=== PATIENT | male | born 1985 | race African-American/Black ===

== ENCOUNTER 2017-06-15 12:45 | Inpatient (IN) | payer OTHER ==
[2017-06-15 14:15] VITALS: BMI 49.4
--- NOTE | 2017-06-15 15:46 | HP ---
CIWA Score - CIWA Score Nausea/Vomitin Muscle Tremors: 3 Anxiety: 3 Agitation: 3 Paroxysmal Sweats: 2 Orientation: 0-Oriented Tacttile Disturbances: 2-Mild Itch/Numbness/Burn Auditory Disturbances: 1-Very Mild Visual Disturbances: 0-None Headache: 2-Mild CIWA-Ar Total Score: 19 Admission ROS BHS - HPI Chief Complaint: i need help to stop drinking alcocol,pcp Allergies/Adverse Reactions: Allergies Allergy/AdvReac Type Severity Reaction Status Date / Time No Known Allergies Allergy Verified 06/15/17 15:33 History of Present Illness: this 31 yeas old male with alcohol and pcp dependence ,sseking detox,last treatment in 2008 [facility] syncope alcohol related bipolar disorder,anxiety and depression longest period of sobriety 5 years Exam Limitations: No Limitations - Ebola screening Have you traveled outside of the country in the last 21 days: No Have you had contact with anyone from an Ebola affected area: No Have you been sick,other than usual withdrawal symptoms: No Do you have a fever: No - Review of Systems Constitutional: Night Sweats, Changes in sleep EENT: reports: Nose Congestion Respiratory: reports: No Symptoms reported Cardiac: reports: No Symptoms Reported GI: reports: Nausea, Vomiting, Abdominal cramping : reports: No Symptoms Reported Musculoskeletal: reports: Back Pain, Muscle Pain Integumentary: reports: Dryness Neuro: reports: Headache, Tremors Endocrine: reports: No Symptoms Reported Hematology: reports: No Symptoms Reported Psychiatric: reports: Anxious, Depressed, other (bipolar disorder) Patient History - Patient Medical History Hx Anemia: No Hx Asthma: No Hx Chronic Obstructive Pulmonary Disease (COPD): No Hx Cancer: No Hx Cardiac Disorders: No Hx Congestive Heart Failure: No Hx Hypertension: No Hx Hypercholesterolemia: No Hx Pacemaker: No HX Cerebrovascular Accident: No Hx Seizures: No Hx Dementia: No Hx Diabetes: No Hx Gastrointestinal Disorders: No Hx Liver Disease: No Hx Genitourinary Disorders: No Hx Renal Disease (ESRD): No Hx Thyroid Disease: No Hx Human Immunodeficiency Virus (HIV): No (lasrt 2014 negative) Hx Hepatitis C: No Hx Depression: Yes (anxiety) Hx Suicide Attempt: No Hx Bipolar Disorder: Yes Hx Schizophrenia: No Other Medical History: no suicidal,no homicidal - Patient Surgical History Past Surgical History: No - PPD History Previous Implant?: Yes Documented Results: Negative w/o proof PPD to be Administered?: Yes - Smoking Cessation Smoking history: Current every day smoker Have you smoked in the past 12 months: Yes Aproximately how many cigarettes per day: 3 Cigars Per Day: 0 Hx Chewing Tobacco Use: No Initiated information on smoking cessation: Yes 'Breaking Loose' booklet given: 06/15/17 - Substance & Tx. History Hx Alcohol Use: Yes Hx Substance Use: No Substance Use Type: Alcohol Hx Substance Use Treatment: Yes (last treatment 2008 [facility]) - Substances Abused Alcohol Route: Oral Frequency: Daily Amount used: 1-2 pints vodka , 5 24 oz beer Age of first use: 16 Date of Last Use: 06/14/17 PCP Route: Smoking Frequency: 1-3 times last 30 days Amount used: $10 Age of first use: 20 Date of Last Use: 06/09/17 Family Disease History - Family Disease History Family History: Denies Admission Physical Exam S - Vital Signs Vital Signs: Vital Signs - 24 hr 06/15/17 14:13 Temperature 98.0 F Pulse Rate 85 Respiratory 16 Rate Blood Pressure 140/79 - Physical General Appearance: Yes: Moderate Distress, Obese HEENTM: Yes: Normal ENT Inspection, LISETTE, Pharynx Normal Respiratory: Yes: Lungs Clear, Normal Breath Sounds, No Respiratory Distress Neck: Yes: Within Normal Limits, Supple, Trachea in good position Breast: Yes: Within Normal Limits Cardiology: Yes: Within Normal Limits, Regular Rhythm, Regular Rate, S1, S2 Abdominal: Yes: Within Normal Limits, Non Tender, Flat, Soft Genitourinary: Yes: Within Normal Limits Back: Yes: Muscle Spasm Musculoskeletal: Yes: Within Normal Limits, full range of Motion, Back pain Extremities: Yes: Within Normal Limits, Normal Inspection, Normal Range of Motion, Tremors Neurological: Yes: fiscal analyst II-XII NML intact, Fully Oriented, Alert, Motor Strength 5/5 Integumentary: Yes: Dry Lymphatic: Yes: Within Normal Limits - Diagnostic (1) Alcohol dependence with uncomplicated withdrawal Current Visit: Yes Status: Acute (2) Syncope Current Visit: Yes Status: Acute (3) Obesity Current Visit: Yes Status: Chronic (4) Obesities, morbid Current Visit: Yes Status: Acute (5) Bipolar disorder Current Visit: Yes Status: Chronic Comment: Historical diagnosis. (6) History of umbilical hernia repair Current Visit: Yes Status: Chronic (7) Nicotine dependence Current Visit: Yes Status: Acute Cleared for Admission [facility] - Detox or Rehab [facility] Level of Care: Medically Managed Detox Regimen/Protocol: Librium [facility] Breath Alcohol Content Breath Alcohol Content: 0 Urine Drug Screen - Results Drug Screen Negative: Yes
[2017-06-15] MEDS ORDERED: MAGNESIUM CITRATE 300 ML BOTTLE PO PRN (16:10)
[2017-06-15] MEDS ORDERED: MENTHOL/PHENOL 1 EACH UD MM PRN (16:10)
[2017-06-15] MEDS ORDERED: MAGNESIUM HYDROX 2400MG/30ML ORAL SUSPENSION 30 ML CUP PO PRN (16:10)
[2017-06-15] MEDS ORDERED: P-EPHED 60MG/TRIPROLIDI 2.5MG TABLET PO PRN (16:10)
[2017-06-15] MEDS ORDERED: MAG HYDROX/AL HYDROX/SIMETH 30 ML UNIT-DOSE CUP PO PRN (16:10)
[2017-06-15] MEDS ORDERED: ACETAMINOPHEN 325 MG TABLET (FP) PO PRN (16:10)
[2017-06-15] MEDS ORDERED: hydrOXYzine PAMOATE 50 MG CAPSULE (FP) PO PRN (16:10)
[2017-06-15] MEDS ORDERED: guaiFENesin/D-METHORPHAN HB 10 ML UNIT-DOSE CUPS PO PRN (16:10)
[2017-06-15] MEDS ORDERED: LOPERAMIDE HCL 2 MG CAPSULE PO PRN (16:10)
[2017-06-15] MEDS ORDERED: IBUPROFEN 400 MG TABLET (FP) PO PRN (16:10)
[2017-06-15] MEDS ORDERED: chlordiazePOXIDE HCL 25 MG CAPSULE PO PRN (17:21)
--- NOTE | 2017-06-15 18:21 | CONSULT ---
[facility] Psychiatric Consult - Data Date of interview: 06/15/17 Admission source: [facility] Identifying data: Readmission to [facility] for this 31 y/o AA male seeking detox treatment on for alcohol and phencyclidine dependence.Patient is single without children,homeless,unemployed and supported on welfare. Substance Abuse History: Discussed with patient.Mr Good confirms this report. Smoking Cessation. Smoking history: Current every day smoker. Have you smoked in the past 12 months: Yes. Aproximately how many cigarettes per day: 3. Cigars Per Day: 0. Hx Chewing Tobacco Use: No. Initiated information on smoking cessation: Yes. 'Breaking Loose' booklet given: 06/15/17. - Substance & Tx. History. Hx Alcohol Use: Yes. Hx Substance Use: No. Substance Use Type : Alcohol. Hx Substance Use Treatment: Yes (last treatment 2008 [facility]) Medical History: Patient endorses good general health.Noted history of abdominal herniorraphy (three years ago). Psychiatric History: Patient reports a history of multiple psychiatric hospitalizations.He is known to [facility] ([facility]),[facility] and [facility].Diagnosed with Bipolar Disorder.Mr Good denies affiliation with any OPD care organization.Totally lost to follow up.Recent retention at [facility].Vague about his maintenance medications." I am on haldol,risperdal,depakote,abilify,cogentin and some other stuff." Adherence remains questionable.Patient denies history of suicide attempts. Physical/Sexual Abuse/Trauma History: Patient denies. Additional Comment: Drug Screen is negative. Mental Status Exam - Mental Status Exam Alert and Oriented to: Time, Place, Person Cognitive Function: Good Patient Appearance: Well Groomed (obese) Mood: Nervous, Withdrawn Affect: Appropriate, Normal Range Patient Behavior: Fatigued, Appropriate, Cooperative Speech Pattern: Clear Voice Loudness: Normal Thought Process: Goal Oriented Thought Disorder: Not Present Hallucinations: Denies Suicidal Ideation: Denies Homicidal Ideation: Denies Insight/Judgement: Poor Sleep: Poorly, Difficulty falling asleep Appetite: Good Muscle strength/Tone: Normal Gait/Station: Normal Psychiatric Findings - Problem List ([place] 1, 2,3) (1) Alcohol dependence with uncomplicated withdrawal Current Visit: Yes Status: Acute (2) Nicotine dependence Current Visit: Yes Status: Acute (3) Substance induced mood disorder Current Visit: Yes Status: Acute (4) Bipolar disorder Current Visit: Yes Status: Chronic Comment: Historical diagnosis. (5) Obesity Current Visit: Yes Status: Chronic (6) History of umbilical hernia repair Current Visit: Yes Status: Chronic (7) Insomnia Current Visit: Yes Status: Acute - Initial Treatment Plan Initial Treatment Plan: Psychoeducation.Detoxification.Medications : depakote 250 mg po bid + risperdal 1 mg po bid + cogentin 0.5 mg po daily.Side effects/ benefits of each medication are discussed with the patient.He consents (verbally ) to adhere to the proposed regimen.Observation.
[2017-06-15 19:05] LABS: URINE APPEARANCE CLEAR; URINE BILIRUBIN NEGATIVE (NEGATIVE); URINE BLOOD NEGATIVE (NEGATIVE); URINE COLOR LTYELLOW; URINE GLUCOSE (UA) NEGATIVE (NEGATIVE); URINE KETONE NEGATIVE (NEGATIVE); URINE LEUK ESTERASE TRACE (NEGATIVE); URINE NITRITE NEGATIVE (NEGATIVE); URINE PROTEIN NEGATIVE (NEGATIVE); URINE UROBILINOGEN NEGATIVE mg/dL (0.2-1.0)
[2017-06-15 19:20] LABS: URINE HYALINE CAST 1 /lpf; URINE MUCUS RARE; URINE RBC 1 /hpf (0-3); URINE WBC 9 /hpf (3-5)
[2017-06-15] MEDS: chlordiazePOXIDE HCL 25 MG CAPSULE PO SCH (22:15)
[2017-06-15] MEDS: DIVALPROEX SODIUM 250 MG TABLET E.C. (FP) PO SCH (22:15)
[2017-06-15] MEDS: diphenhydrAMINE HCL 50 MG CAPSULE PO PRN (22:15)
[2017-06-15] MEDS: THIAMINE HCL 100 MG TABLET (FP) PO SCH (22:15)
[2017-06-15] MEDS: risperiDONE 1 MG TABLET (FP) PO SCH (22:15)
[2017-06-16] MEDS: chlordiazePOXIDE HCL 25 MG CAPSULE PO SCH ×4 (05:49→22:30)
[2017-06-16] MEDS: risperiDONE 1 MG TABLET (FP) PO SCH ×2 (10:22→22:31)
[2017-06-16] MEDS: PRENATAL VITAMINS W/ FOLIC ACID TABLET (FP) PO SCH (10:22)
[2017-06-16] MEDS: BENZTROPINE MESYLATE 1 MG TABLET (FP) PO SCH (10:22)
[2017-06-16] MEDS: DIVALPROEX SODIUM 250 MG TABLET E.C. (FP) PO SCH ×2 (10:22→22:31)
[2017-06-16 10:30] LABS: MCH 29.5 pg (25.7-33.7); MCHC 32.8 g/dl (32.0-35.9); MEAN CELL VOLUME 90.2 fl (80-96); MEAN PLT VOLUME 8.7 fl (7.5-11.1); PLATELET COUNT 158 K/MM3 (134-434); RDW 15.5 % (11.9-15.9); WHITE BLOOD COUNT 5.3 K/mm3 (4.0-10.0)
[2017-06-16 10:57] LABS: ALBUMIN 3.3 g/dl (3.4-5.0); ANION GAP 7 (8-16); CALCIUM 8.8 mg/dL (8.5-10.1); CO2 29 mmol/L (21-32)
[2017-06-16 11:03] LABS: ALK PHOS 81 U/L (45-117); BILIRUBIN,TOTAL 0.8 mg/dL (0.2-1.0); CREATININE 0.8 mg/dL (0.7-1.3); GLUCOSE,RANDOM 94 mg/dL (74-106); SGOT/AST 16 U/L (15-37); SGPT/ALT 20 U/L (12-78); TOT PROT 6.3 g/dl (6.4-8.2)
[2017-06-16] MEDS ORDERED: PNEUMOCOCCAL 23 VACCINE 0.5 ML VIAL IM ONE (12:00)
[2017-06-16] MEDS ORDERED: PNEUMOC 13-VAL CONJ-DIP CRM/PF 0.5 ML DISP.SYRIN IM ONE (12:00)
--- NOTE | 2017-06-16 13:10 | PN ---
[facility] CIWA - CIWA Score Nausea/Vomitin-Mild Nausea/No Vomiting Muscle Tremors: 1-None Visible, but [place] Anxiety: 4-Mod. Anxious/Guarded Agitation: 3 Paroxysmal Sweats: 3 Orientation: 0-Oriented Tacttile Disturbances: 3-Moderate Itch/Numb/Burn Auditory Disturbances: 1-Very Mild Visual Disturbances: 2-Mild Sensitivity Headache: 0-None Present CIWA-Ar Total Score: 18 [facility] Progress Note (SOAP) Subjective: Body Aches, Sweating. Objective: PT. A & O X 3, OBSERVED AMBULATING ON UNIT. NO ACUTE DISTRESS. PT. DENIES CHEST PAIN. 06/16/17 13:07 Vital Signs Temperature 97.3 F L 06/16/17 09:07 Pulse Rate 74 06/16/17 09:07 Respiratory Rate 18 06/16/17 09:07 Blood Pressure 117/81 06/16/17 09:07 O2 Sat by Pulse Oximetry (%) Laboratory Tests 06/15/17 06/16/17 06/16/17 18:53 07:45 07:45 WBC 5.3 RBC 4.21 Hgb 12.4 Hct 38.0 MCV 90.2 MCH 29.5 MCHC 32.8 RDW 15.5 Plt Count 158 MPV 8.7 Sodium 140 Potassium 4.0 Chloride 104 Carbon Dioxide 29 Anion Gap 7 L BUN 18 Creatinine 0.8 Creat Clearance w eGFR > 60 Random Glucose 94 Calcium 8.8 Total Bilirubin 0.8 AST 16 ALT 20 Alkaline Phosphatase 81 Total Protein 6.3 L Albumin 3.3 L Urine Color Ltyellow Urine Appearance Clear Urine pH 7.0 Ur Specific [place] 1.020 Urine Protein Negative Urine Glucose (UA) Negative Urine Ketones Negative Urine Blood Negative Urine Nitrite Negative Urine Bilirubin Negative Urine Urobilinogen Negative Ur Leukocyte Esterase Trace Urine RBC 1 Urine WBC 9 Ur Epithelial Cells Rare Hyaline Casts 1 Urine Mucus Rare RPR Titer 06/16/17 07:45 WBC RBC Hgb Hct MCV MCH MCHC RDW Plt Count MPV Sodium Potassium Chloride Carbon Dioxide Anion Gap BUN Creatinine Creat Clearance w eGFR Random Glucose Calcium Total Bilirubin AST ALT Alkaline Phosphatase Total Protein Albumin Urine Color Urine Appearance Urine pH Ur Specific [place] Urine Protein Urine Glucose (UA) Urine Ketones Urine Blood Urine Nitrite Urine Bilirubin Urine Urobilinogen Ur Leukocyte Esterase Urine RBC Urine WBC Ur Epithelial Cells Hyaline Casts Urine Mucus RPR Titer Nonreactive LABS NOTED. Assessment: 06/16/17 13:08 WITHDRAWAL SYMPTOMS. Plan: CONTINUE DETOX. REPEAT UA FOR ADMISSION UA ABNORMALITIES (WBC, LEUKOCYTE ESTERASE).
[2017-06-16 19:30] LABS: URINE APPEARANCE TURBID; URINE BILIRUBIN NEGATIVE (NEGATIVE); URINE BLOOD NEGATIVE (NEGATIVE); URINE COLOR YELLOW; URINE GLUCOSE (UA) NEGATIVE (NEGATIVE); URINE KETONE NEGATIVE (NEGATIVE); URINE NITRITE NEGATIVE (NEGATIVE); URINE UROBILINOGEN NEGATIVE mg/dL (0.2-1.0)
[2017-06-16 19:36] LABS: URINE LEUK ESTERASE 2+ (NEGATIVE); URINE PROTEIN 2+ (NEGATIVE)
[2017-06-16 19:38] LABS: URINE BACTERIA MODERATE /hpf (NONE SEEN); URINE MUCUS RARE; URINE RBC 1 /hpf (0-3); URINE WBC 22 /hpf (3-5)
[2017-06-16] MEDS: THIAMINE HCL 100 MG TABLET (FP) PO SCH (22:30)
[2017-06-16] MEDS: diphenhydrAMINE HCL 50 MG CAPSULE PO PRN (22:31)
[2017-06-17] MEDS: chlordiazePOXIDE HCL 25 MG CAPSULE PO SCH ×3 (06:01→17:52)
[2017-06-17] MEDS: PRENATAL VITAMINS W/ FOLIC ACID TABLET (FP) PO SCH (10:17)
[2017-06-17] MEDS: DIVALPROEX SODIUM 250 MG TABLET E.C. (FP) PO SCH ×2 (10:17→22:12)
[2017-06-17] MEDS: risperiDONE 1 MG TABLET (FP) PO SCH ×2 (10:17→22:12)
[2017-06-17] MEDS: BENZTROPINE MESYLATE 1 MG TABLET (FP) PO SCH (10:17)
--- NOTE | 2017-06-17 14:01 | EKG ---
Test Reason : Blood Pressure : / mmHG Vent. Rate : 066 BPM Atrial Rate : 066 BPM P-R Int : 188 ms QRS Dur : 088 ms QT Int : 390 ms P-R-T Axes : 042 041 -01 degrees QTc Int : 408 ms NORMAL SINUS RHYTHM NORMAL ECG NO PREVIOUS ECGS AVAILABLE BASELINE ARTIFACT Confirmed by FOZIA CRAWFORD, STEVEN ([id number]) on 06/17/2017 2:01:03 PM Referred By: Confirmed By:STEVEN MARCELO MD
--- NOTE | 2017-06-17 14:27 | PN ---
S CIWA - CIWA Score Nausea/Vomitin Muscle Tremors: 4-Moderate,w/Arms Extend Anxiety: 4-Mod. Anxious/Guarded Agitation: 3 Paroxysmal Sweats: 3 Orientation: 0-Oriented Tacttile Disturbances: 1-Very Mild Itch/Numbness Auditory Disturbances: 0-None Visual Disturbances: 0-None Headache: 2-Mild CIWA-Ar Total Score: 20 [facility] Progress Note (SOAP) Subjective: Tremor, sweating, nausea, anxious, chills Objective: 06/17/17 14:24 Last Vital Signs Temp Pulse Resp BP Pulse Ox 97.7 F 83 18 131/84 06/17/17 13:50 06/17/17 13:50 06/17/17 13:50 06/17/17 13:50 Laboratory Tests 06/15/17 06/16/17 06/16/17 18:53 07:45 07:45 WBC 5.3 RBC 4.21 Hgb 12.4 Hct 38.0 MCV 90.2 MCH 29.5 MCHC 32.8 RDW 15.5 Plt Count 158 MPV 8.7 Sodium 140 Potassium 4.0 Chloride 104 Carbon Dioxide 29 Anion Gap 7 L BUN 18 Creatinine 0.8 Creat Clearance w eGFR > 60 Random Glucose 94 Calcium 8.8 Total Bilirubin 0.8 AST 16 ALT 20 Alkaline Phosphatase 81 Total Protein 6.3 L Albumin 3.3 L Urine Color Ltyellow Urine Appearance Clear Urine pH 7.0 Ur Specific [place] 1.020 Urine Protein Negative Urine Glucose (UA) Negative Urine Ketones Negative Urine Blood Negative Urine Nitrite Negative Urine Bilirubin Negative Urine Urobilinogen Negative Ur Leukocyte Esterase Trace Urine RBC 1 Urine WBC 9 Ur Epithelial Cells Rare Urine Bacteria Hyaline Casts 1 Urine Mucus Rare RPR Titer 06/16/17 06/16/17 07:45 19:26 WBC RBC Hgb Hct MCV MCH MCHC RDW Plt Count MPV Sodium Potassium Chloride Carbon Dioxide Anion Gap BUN Creatinine Creat Clearance w eGFR Random Glucose Calcium Total Bilirubin AST ALT Alkaline Phosphatase Total Protein Albumin Urine Color Yellow Urine Appearance Turbid Urine pH 8.0 Ur Specific [place] Urine Protein 2+ H Urine Glucose (UA) Negative Urine Ketones Negative Urine Blood Negative Urine Nitrite Negative Urine Bilirubin Negative Urine Urobilinogen Negative Ur Leukocyte Esterase 2+ H Urine RBC 1 Urine WBC 22 Ur Epithelial Cells Rare Urine Bacteria Moderate Hyaline Casts Urine Mucus Rare RPR Titer Nonreactive Labs noted: abnormal UA Assessment: 06/17/17 14:24 Withdrawal symptoms Noted with abnormal UA Plan: Continue detox Abnormal UA: encouraged to drink lots of water, follow up on urine culture
[2017-06-17] MEDS: NICOTINE 14 MG/24 HOURS TOPICAL PATCH TD SCH (18:52)
[2017-06-17] MEDS: NICOTINE POLACRILEX 2 MG GUM BUC PRN ×2 (18:53→22:58)
[2017-06-17] MEDS: diphenhydrAMINE HCL 50 MG CAPSULE PO PRN (22:12)
[2017-06-17] MEDS: chlordiazePOXIDE 5 MG CAPSULE PO SCH (22:12)
[2017-06-17] MEDS: THIAMINE HCL 100 MG TABLET (FP) PO SCH (22:12)
[2017-06-18] MEDS: chlordiazePOXIDE 5 MG CAPSULE PO SCH ×3 (05:19→17:22)
[2017-06-18] MEDS: NICOTINE 14 MG/24 HOURS TOPICAL PATCH TD SCH (10:21)
[2017-06-18] MEDS: DIVALPROEX SODIUM 250 MG TABLET E.C. (FP) PO SCH ×2 (10:23→22:14)
[2017-06-18] MEDS: BENZTROPINE MESYLATE 1 MG TABLET (FP) PO SCH (10:23)
[2017-06-18] MEDS: PRENATAL VITAMINS W/ FOLIC ACID TABLET (FP) PO SCH (10:23)
[2017-06-18] MEDS: risperiDONE 1 MG TABLET (FP) PO SCH ×2 (10:23→22:14)
[2017-06-18] MEDS: NICOTINE POLACRILEX 2 MG GUM BUC PRN (10:27)
--- NOTE | 2017-06-18 14:01 | PN ---
[facility] Progress Note (SOAP) Subjective: Tremors, Fatigue. Objective: PT. A & O X 3, OBSERVED AMBULATING ON UNIT. NO ACUTE DISTRESS. PT. DENIES CHEST PAIN. 06/18/17 13:58 Vital Signs Temperature 96.5 F L 06/18/17 13:40 Pulse Rate 80 06/18/17 13:40 Respiratory Rate 20 06/18/17 13:40 Blood Pressure 137/97 06/18/17 13:40 O2 Sat by Pulse Oximetry (%) Laboratory Tests 06/15/17 06/16/17 06/16/17 18:53 07:45 07:45 WBC 5.3 RBC 4.21 Hgb 12.4 Hct 38.0 MCV 90.2 MCH 29.5 MCHC 32.8 RDW 15.5 Plt Count 158 MPV 8.7 Sodium 140 Potassium 4.0 Chloride 104 Carbon Dioxide 29 Anion Gap 7 L BUN 18 Creatinine 0.8 Creat Clearance w eGFR > 60 Random Glucose 94 Calcium 8.8 Total Bilirubin 0.8 AST 16 ALT 20 Alkaline Phosphatase 81 Total Protein 6.3 L Albumin 3.3 L Urine Color Ltyellow Urine Appearance Clear Urine pH 7.0 Ur Specific [place] 1.020 Urine Protein Negative Urine Glucose (UA) Negative Urine Ketones Negative Urine Blood Negative Urine Nitrite Negative Urine Bilirubin Negative Urine Urobilinogen Negative Ur Leukocyte Esterase Trace Urine RBC 1 Urine WBC 9 Ur Epithelial Cells Rare Urine Bacteria Hyaline Casts 1 Urine Mucus Rare RPR Titer 06/16/17 06/16/17 07:45 19:26 WBC RBC Hgb Hct MCV MCH MCHC RDW Plt Count MPV Sodium Potassium Chloride Carbon Dioxide Anion Gap BUN Creatinine Creat Clearance w eGFR Random Glucose Calcium Total Bilirubin AST ALT Alkaline Phosphatase Total Protein Albumin Urine Color Yellow Urine Appearance Turbid Urine pH 8.0 Ur Specific [place] <= 1.005 Urine Protein 2+ H Urine Glucose (UA) Negative Urine Ketones Negative Urine Blood Negative Urine Nitrite Negative Urine Bilirubin Negative Urine Urobilinogen Negative Ur Leukocyte Esterase 2+ H Urine RBC 1 Urine WBC 22 Ur Epithelial Cells Rare Urine Bacteria Moderate Hyaline Casts Urine Mucus Rare RPR Titer Nonreactive LABS NOTED. Assessment: 06/18/17 14:00 WITHDRAWAL SYMPTOMS. Plan: CONTINUE DETOX. BASED ON RESULTS OF REPEAT UA DONE ON 06/16/2017, START BACTRIM DS PO BID X 7 DAYS. INCREASE PO FLUID INTAKE.
[2017-06-18] MEDS: SULFAMETHOXAZOLE/TRIMETHOPRIM 800MG/160MG D.S. TABLET PO SCH ×2 (14:50→22:14)
[2017-06-18] MEDS ORDERED: SULFAMETHOXAZOLE/TRIMETHOPRIM 800MG/160MG D.S. TABLET PO SCH (22:00)
[2017-06-18 22:11] VITALS: PULSE 84
[2017-06-18] MEDS: chlordiazePOXIDE HCL 10 MG CAPSULE PO SCH (22:13)
[2017-06-18] MEDS: THIAMINE HCL 100 MG TABLET (FP) PO SCH (22:13)
[2017-06-18] MEDS: diphenhydrAMINE HCL 50 MG CAPSULE PO PRN (22:14)
[2017-06-19 06:10] VITALS: BP 141/90; TEMP 97.4
[2017-06-19] MEDS: chlordiazePOXIDE HCL 10 MG CAPSULE PO SCH (06:21)
--- NOTE | 2017-06-19 10:09 | DS ---
[facility] Detox Discharge Summary Admission Date: 06/15/17 Discharge Date: 06/19/17 - History Present History: Alcohol Dependence Additional Comments: PT D/C'D EARLIER TODAY TO F/U WITH EVALUATION ASSESSMENT PER D/C ORDER. DETOX COMPLETED. TO F/U AT [facility]. Pertinent Past History: OBESITY UMBILICAL HERNIA REPAIR - Physical Exam Results Vital Signs: Vital Signs Temperature 97.4 F L 06/19/17 06:10 Pulse Rate 84 06/19/17 06:10 Respiratory Rate 18 06/19/17 06:10 Blood Pressure 141/90 06/19/17 06:10 O2 Sat by Pulse Oximetry (%) Pertinent Admission Physical Exam Findings: WITHDRAWAL SX - Treatment Hospital Course: Detox Protocol Followed, Detoxed Safely, Responded well, Discharged Condition Good - Medication Discharge Medications: Ambulatory Orders Benztropine Mesylate [Cogentin -] 1 mg PO BID 06/15/17 Divalproex Sodium [Depakote] 250 mg PO BID 06/15/17 Benztropine Mesylate [Cogentin -] 0.5 mg PO HS #30 tablet 06/18/17 Divalproex [Depakote -] 500 mg PO HS #30 tablet.ec 06/18/17 Risperidone [Risperdal] 2 mg PO HS #30 tablet 06/18/17 - Diagnosis (1) Alcohol dependence with uncomplicated withdrawal Status: Acute (2) Nicotine dependence Status: Acute (3) Obesities, morbid Status: Acute (4) History of umbilical hernia repair Status: Chronic (5) Insomnia Status: Acute (6) Bipolar disorder Status: Chronic - AMA Did Patient Leave Against Medical Advice: No
== END 2017-06-19 06:41 | disposition home or self-care (01) | DRG 775 ==
LOC: YASAS 12:45 → Y3N 15:52 → Y3W 15:53 → Y3N 15:54
PROVIDERS: ADMIT Internal Medicine; ATTEND Internal Medicine
PROC: HZ2ZZZZ Detoxification Services for Substance Abuse Treatment (ICD-10-PCS; principal; 2017-06-15)
DX: F10.230 Alcohol dependence with withdrawal, uncomplicated (principal); F17.210 Nicotine dependence, cigarettes, uncomplicated; F31.9 Bipolar disorder, unspecified; F19.24 Other psychoactive substance dependence with psychoactive substance-induced mood disorder; G47.00 Insomnia, unspecified; E66.01 Morbid (severe) obesity due to excess calories; Z68.42 Body mass index [BMI] 45.0-49.9, adult; R82.90 Unspecified abnormal findings in urine; Z86.79 Personal history of other diseases of the circulatory system
CPT/HCPCS: 36415; 80053; 81003; 81015; 85027; 86593; 90732; 93005; 93010; G0009; J2794

== ENCOUNTER 2017-07-02 09:26 | Inpatient (IN) | payer OTHER ==
[2017-07-02 10:12] VITALS: BMI 47.5
--- NOTE | 2017-07-02 11:51 | HP ---
[facility] Rehab Assess/Revision - Admission History Admitted to Rehab from: [facility] (DETOX COMPLETED- 06/15 - 06/19/17) Date of Admission to Rehab: 07/02/17 - Vital signs Vital Signs: Vital Signs Period Temp Pulse Resp BP Sys/Pugh Pulse Ox Last 24 Hr 98.1 F 85 20 159/79 - Findings Detox History & Physical reviewed: Yes Concur with findings: Yes Comments/Additional Findings: PT RETURNED TO FOLLOW UP WITH REHAB REFERRAL. ADMIT TO [facility].
[2017-07-02] MEDS ORDERED: MENTHOL/PHENOL 1 EACH UD MM PRN (11:55)
[2017-07-02] MEDS ORDERED: MAGNESIUM HYDROX 2400MG/30ML ORAL SUSPENSION 30 ML CUP PO PRN (11:55)
[2017-07-02] MEDS ORDERED: ACETAMINOPHEN 325 MG TABLET (FP) PO PRN (11:55)
[2017-07-02] MEDS ORDERED: hydrOXYzine PAMOATE 50 MG CAPSULE (FP) PO PRN (11:55)
[2017-07-02] MEDS ORDERED: LOPERAMIDE HCL 2 MG CAPSULE PO PRN (11:55)
[2017-07-02] MEDS ORDERED: MAG HYDROX/AL HYDROX/SIMETH 30 ML UNIT-DOSE CUP PO PRN (11:55)
[2017-07-02] MEDS ORDERED: P-EPHED 60MG/TRIPROLIDI 2.5MG TABLET PO PRN (11:55)
[2017-07-02] MEDS ORDERED: diphenhydrAMINE HCL 50 MG CAPSULE PO PRN (11:55)
[2017-07-02] MEDS ORDERED: IBUPROFEN 400 MG TABLET (FP) PO PRN (11:55)
[2017-07-02] MEDS ORDERED: MAGNESIUM CITRATE 300 ML BOTTLE PO PRN (11:55)
[2017-07-02] MEDS ORDERED: guaiFENesin/D-METHORPHAN HB 10 ML UNIT-DOSE CUPS PO PRN (11:55)
[2017-07-02 17:07] LABS: URINE APPEARANCE TURBID; URINE BILIRUBIN NEGATIVE (NEGATIVE); URINE BLOOD NEGATIVE (NEGATIVE); URINE COLOR YELLOW; URINE GLUCOSE (UA) NEGATIVE (NEGATIVE); URINE KETONE NEGATIVE (NEGATIVE); URINE NITRITE NEGATIVE (NEGATIVE); URINE PROTEIN NEGATIVE (NEGATIVE)
[2017-07-02 17:16] LABS: URINE LEUK ESTERASE 1+ (NEGATIVE)
[2017-07-02 17:20] LABS: URINE BACTERIA FEW /hpf (NONE SEEN); URINE MUCUS MANY; URINE WBC 153 /hpf (3-5)
[2017-07-02] MEDS: NICOTINE 14 MG/24 HOURS TOPICAL PATCH TD SCH (17:30)
--- NOTE | 2017-07-02 19:06 | EKG ---
Test Reason : Blood Pressure : / mmHG Vent. Rate : 079 BPM Atrial Rate : 079 BPM P-R Int : 180 ms QRS Dur : 092 ms QT Int : 356 ms P-R-T Axes : 063 036 -12 degrees QTc Int : 408 ms NORMAL SINUS RHYTHM NORMAL ECG WHEN COMPARED WITH ECG OF 15-JUN-2017 16:25, NO SIGNIFICANT CHANGE WAS FOUND Confirmed by МАРИНА NUNEZ MD ([id number]) on 07/02/2017 7:06:12 PM Referred By: Derrell Chan Confirmed By:МАРИНА NUNEZ MD
[2017-07-02] MEDS: THIAMINE HCL 100 MG TABLET (FP) PO SCH (22:03)
[2017-07-03] MEDS: PRENATAL VITAMINS W/ FOLIC ACID TABLET (FP) PO SCH (10:23)
[2017-07-03] MEDS: NICOTINE 14 MG/24 HOURS TOPICAL PATCH TD SCH (10:23)
--- NOTE | 2017-07-03 14:58 | HP ---
Psychiatrist Admission - Data Date of interview: 07/03/17 Admission source: [facility] Identifying data: This is the first admission to [address] [place] [address] for this 31 years old AA single male,homeless,supported by [place]. Medical History: Morbid obesity. Psychiatric History: Reports first contact with psychiatrist was in his teens.Patient was dx with Bipolar disorder.Reports multiple psychiatric admissions.Most recent admission was last year to [facility] due to depression,anxiety ,drug use.Patient was under my care while in [facility] last year,no psychiatric care since that time.Abilify 15 mg po hs,Cogentin 1 mg po hs and Depakote 500 mg po bid. Physical/Sexual Abuse/Trauma History: denies Vital Signs: Vital Signs - 24 hr 07/03/17 07/03/17 07/03/17 00:30 03:30 06:45 Temperature 97.7 F Pulse Rate 71 Respiratory 20 20 20 Rate Blood Pressure 120/94 Allergies/Adverse Reactions: Allergies Allergy/AdvReac Type Severity Reaction Status Date / Time No Known Allergies Allergy Verified 07/02/17 11:09 Date of last physical exam: 07/02/17 Concur with the findings of this exam: Yes - Substance Abuse/Tx History Hx Alcohol Use: Yes (drinking since 13 yo,2 pints of vodka daily) Hx Substance Use: Yes (marijuana since 19 yo,$10 daily,PCP since 19 yo,spending $10 daily) Substance Use Type: Alcohol, Marijuana Hx Substance Use Treatment: Yes (multiple modalities of drug treatment,not long abstinent time) - Admission Criteria Previous failed treatment: Yes Poor recovery environment: Yes Comorbidities: Yes Lacks judgement: Yes Mental Status Exam - Mental Status Exam Alert and Oriented to: Time, Place, Person Cognitive Function: Grossly Intact Patient Appearance: Unkempt Mood: Sad, Anxious Affect: Mood Congruent, Labile Patient Behavior: Cooperative Speech Pattern: Clear Voice Loudness: Normal Thought Process: Goal Oriented Thought Disorder: Being Controlled Hallucinations: Denies Suicidal Ideation: Denies Homicidal Ideation: Denies Insight/Judgement: Fair Sleep: Fair Appetite: Good Muscle strength/Tone: Normal Gait/Station: Normal Psychiatric Findings - Problem List ([place] 1, 2,3) (1) Nicotine dependence Current Visit: Yes Status: Chronic Qualifiers: Nicotine product type: cigarettes Substance use status: in withdrawal Qualified Code(s): F17.213 - Nicotine dependence, cigarettes, with withdrawal (2) Obesities, morbid Current Visit: Yes Status: Chronic (3) PCP dependence Current Visit: Yes Status: Chronic (4) Alcohol dependence Current Visit: Yes Status: Chronic (5) Bipolar 1 disorder Current Visit: Yes Status: Chronic - Initial Treatment Plan Initial Treatment Plan: Depakote 500 mg po bid,Cogentin 1 mg po hs and Abilify 15 mg po hs.
[2017-07-03] MEDS: THIAMINE HCL 100 MG TABLET (FP) PO SCH (21:50)
[2017-07-03] MEDS: risperiDONE 2 MG TABLET PO SCH (21:50)
[2017-07-03] MEDS: DIVALPROEX SODIUM 500 MG TABLET E.C. PO SCH (21:51)
[2017-07-03] MEDS: BENZTROPINE MESYLATE 1 MG TABLET (FP) PO SCH (21:51)
[2017-07-04] MEDS: NICOTINE 14 MG/24 HOURS TOPICAL PATCH TD SCH (12:23)
[2017-07-04] MEDS: PRENATAL VITAMINS W/ FOLIC ACID TABLET (FP) PO SCH (12:23)
[2017-07-04] MEDS: THIAMINE HCL 100 MG TABLET (FP) PO SCH (21:37)
[2017-07-04] MEDS: risperiDONE 2 MG TABLET PO SCH (21:37)
[2017-07-04] MEDS: DIVALPROEX SODIUM 500 MG TABLET E.C. PO SCH (21:37)
[2017-07-04] MEDS: BENZTROPINE MESYLATE 1 MG TABLET (FP) PO SCH (21:37)
[2017-07-05] MEDS: PRENATAL VITAMINS W/ FOLIC ACID TABLET (FP) PO SCH (10:52)
[2017-07-05] MEDS: NICOTINE 14 MG/24 HOURS TOPICAL PATCH TD SCH (10:52)
[2017-07-05] MEDS: BENZTROPINE MESYLATE 1 MG TABLET (FP) PO SCH (22:33)
[2017-07-05] MEDS: risperiDONE 2 MG TABLET PO SCH (22:33)
[2017-07-05] MEDS: THIAMINE HCL 100 MG TABLET (FP) PO SCH (22:33)
[2017-07-05] MEDS: DIVALPROEX SODIUM 500 MG TABLET E.C. PO SCH (22:34)
[2017-07-06] MEDS: NICOTINE POLACRILEX 2 MG GUM BC PRN (07:01)
[2017-07-06] MEDS: PRENATAL VITAMINS W/ FOLIC ACID TABLET (FP) PO SCH (10:00)
[2017-07-06] MEDS: NICOTINE 14 MG/24 HOURS TOPICAL PATCH TD SCH (10:02)
[2017-07-06] MEDS: risperiDONE 2 MG TABLET PO SCH (21:37)
[2017-07-06] MEDS: THIAMINE HCL 100 MG TABLET (FP) PO SCH (21:37)
[2017-07-06] MEDS: BENZTROPINE MESYLATE 1 MG TABLET (FP) PO SCH (21:38)
[2017-07-06] MEDS: DIVALPROEX SODIUM 500 MG TABLET E.C. PO SCH (21:38)
[2017-07-07] MEDS: PRENATAL VITAMINS W/ FOLIC ACID TABLET (FP) PO SCH (10:06)
[2017-07-07] MEDS: NICOTINE 14 MG/24 HOURS TOPICAL PATCH TD SCH (10:06)
[2017-07-07] MEDS: risperiDONE 2 MG TABLET PO SCH (21:47)
[2017-07-07] MEDS: DIVALPROEX SODIUM 500 MG TABLET E.C. PO SCH (21:47)
[2017-07-07] MEDS: BENZTROPINE MESYLATE 1 MG TABLET (FP) PO SCH (21:47)
[2017-07-07] MEDS: THIAMINE HCL 100 MG TABLET (FP) PO SCH (21:47)
[2017-07-08] MEDS: PRENATAL VITAMINS W/ FOLIC ACID TABLET (FP) PO SCH (09:35)
[2017-07-08] MEDS: NICOTINE 14 MG/24 HOURS TOPICAL PATCH TD SCH (09:35)
[2017-07-08] MEDS: NICOTINE POLACRILEX 2 MG GUM BC PRN (13:59)
[2017-07-08] MEDS: DIVALPROEX SODIUM 500 MG TABLET E.C. PO SCH (21:54)
[2017-07-08] MEDS: THIAMINE HCL 100 MG TABLET (FP) PO SCH (21:54)
[2017-07-08] MEDS: risperiDONE 2 MG TABLET PO SCH (21:54)
[2017-07-08] MEDS: BENZTROPINE MESYLATE 1 MG TABLET (FP) PO SCH (22:02)
[2017-07-09] MEDS: NICOTINE 14 MG/24 HOURS TOPICAL PATCH TD SCH (10:03)
[2017-07-09] MEDS: PRENATAL VITAMINS W/ FOLIC ACID TABLET (FP) PO SCH (11:00)
[2017-07-09] MEDS: NICOTINE POLACRILEX 2 MG GUM BC PRN (12:59)
[2017-07-09] MEDS: THIAMINE HCL 100 MG TABLET (FP) PO SCH (21:40)
[2017-07-09] MEDS: BENZTROPINE MESYLATE 1 MG TABLET (FP) PO SCH (21:40)
[2017-07-09] MEDS: risperiDONE 2 MG TABLET PO SCH (21:40)
[2017-07-09] MEDS: DIVALPROEX SODIUM 500 MG TABLET E.C. PO SCH (21:40)
[2017-07-10] MEDS: PRENATAL VITAMINS W/ FOLIC ACID TABLET (FP) PO SCH (09:46)
[2017-07-10] MEDS: NICOTINE 14 MG/24 HOURS TOPICAL PATCH TD SCH (09:46)
[2017-07-10] MEDS: NICOTINE POLACRILEX 2 MG GUM BC PRN (09:47)
[2017-07-10] MEDS: THIAMINE HCL 100 MG TABLET (FP) PO SCH (21:01)
[2017-07-10] MEDS: DIVALPROEX SODIUM 500 MG TABLET E.C. PO SCH (21:01)
[2017-07-10] MEDS: risperiDONE 2 MG TABLET PO SCH (21:02)
[2017-07-10] MEDS: BENZTROPINE MESYLATE 1 MG TABLET (FP) PO SCH (21:03)
[2017-07-11 06:43] VITALS: BP 147/83; PULSE 69; TEMP 97.3
--- NOTE | 2017-07-11 09:35 | PN ---
Psychiatric Progress Note Vital Signs: Vital Signs Period Temp Pulse Resp BP Sys/Pugh Pulse Ox Last 24 Hr 97.3 F 69 20-20 147/83 Date of Session: 07/11/17 Chief Complaint:: Discharge Note HPI: Patient addressing Alcohol and Phencyclidine Dependence comorbid with Nicotine Dep[endence and Bipolar Disorder ROS: Morbid obesity Current Medications: Active Medications Generic Name Dose Route Start Last Admin Trade Name Freq PRN Reason Stop Dose Admin Acetaminophen 650 mg 07/02/17 11:55 Tylenol - PO Q4H PRN PAIN Al Hydroxide/Mg Hydroxide 30 ml 07/02/17 11:55 Mylanta Oral Suspension - PO Q6H PRN DYSPEPSIA Benztropine Mesylate 0.5 mg 07/03/17 22:00 07/10/17 21:03 Cogentin - PO 0.5 mg HS OSMIN Administration Diphenhydramine HCl 50 mg 07/02/17 11:55 Benadryl - PO HSMR1 PRN INSOMNIA Divalproex Sodium 500 mg 07/03/17 22:00 07/10/17 21:01 Depakote - PO 500 mg HS OSMIN Administration Eucalyptus/Menthol/Phenol/Sorbitol 1 each 07/02/17 11:55 Cepastat Lozenge - MM Q4H PRN SORE THROAT Guaifenesin 10 ml 07/02/17 11:55 Robitussin Dm - PO Q6H PRN COUGH Hydroxyzine Pamoate 50 mg 07/02/17 11:55 Vistaril - PO Q4H PRN AGITATION Ibuprofen 400 mg 07/02/17 11:55 Motrin - PO Q6H PRN SEVERE PAIN Loperamide HCl 4 mg 07/02/17 11:55 Imodium - PO Q6H PRN DIARRHEA Magnesium Citrate 300 ml 07/02/17 11:55 Citroma - PO Q48H PRN CONSTIPATION Magnesium Hydroxide 30 ml 07/02/17 11:55 Milk Of Magnesia - PO DAILY PRN CONSTIPATION Nicotine 14 mg 07/02/17 15:15 07/10/17 09:46 Nicoderm Patch - TD Not Given DAILY OSMIN Nicotine Polacrilex 2 mg 07/02/17 11:55 07/10/17 09:47 Nicorette Gum - BC 2 mg Q2H PRN Administration NICOTINE REPLACEMENT RX Multivit/Folic Acid/Iron 1 tab 07/03/17 10:00 07/10/17 09:46 Vitamins (Sjr) - PO 1 tab DAILY OSMIN Administration Pseudoephedrine/Triprolidine 1 combo 07/02/17 11:55 Actifed - PO TID PRN NASAL CONGESTION Risperidone 2 mg 07/03/17 22:00 07/10/17 21:02 Risperdal - PO 2 mg HS OSMIN Administration Thiamine HCl 100 mg 07/02/17 22:00 07/10/17 21:01 Vitamin B1 - PO 100 mg HS OSMIN Administration Current Side Effect: No Lab tests ordered: Yes Lab tests reviewed: Yes Provider note:: Patient has completed this program today. He has met his short term goals and will continue to address his issues in outpatient treatment at [facility]. Told auto service writer that from his participation in this program, he has learned the importance of complying with outpatient treatment and attending AA/ NA. He responded well to Depakote 500 mg po BID, Abilify 15 mg po HS and Cogentin 1 mg po HS. Scripts for these medications are electronically transmitted to [facility] at [address] [place] [address]. He is stable for discharge today Total face to face time:: 35 Mental Status Exam - Mental Status Exam Alert and Oriented to: Time, Place, Person Cognitive Function: Fair Patient Appearance: Well Groomed Mood: Hopeful, Euthymic Affect: Appropriate Patient Behavior: Cooperative Speech Pattern: Clear Voice Loudness: Normal Thought Process: Intact, Goal Oriented Thought Disorder: Not Present Hallucinations: Denies Suicidal Ideation: Denies Homicidal Ideation: Denies Insight/Judgement: Fair Sleep: Well Appetite: Good Muscle strength/Tone: Normal Gait/Station: Normal Psychiatric Treatment Plan - Problem List (1) Alcohol dependence Current Visit: Yes (2) Nicotine dependence Current Visit: Yes Qualifiers: Nicotine product type: cigarettes Substance use status: in withdrawal Qualified Code(s): F17.213 - Nicotine dependence, cigarettes, with withdrawal (3) Bipolar disorder Current Visit: No Comment: Historical diagnosis. (4) Obesities, morbid Current Visit: Yes Initial treatment plan: Patient is discharged today and referred to [facility] for outpatient treatment
[2017-07-11] MEDS: NICOTINE 14 MG/24 HOURS TOPICAL PATCH TD SCH (10:06)
[2017-07-11] MEDS: PRENATAL VITAMINS W/ FOLIC ACID TABLET (FP) PO SCH (10:06)
== END 2017-07-11 09:15 | disposition home or self-care (01) | DRG 772 ==
LOC: YASAS 09:26 → Y3W 11:37
PROVIDERS: ADMIT Psychiatry & Neurology Psychiatry; ATTEND Psychiatry & Neurology Psychiatry
PROC: HZ42ZZZ Group Counseling for Substance Abuse Treatment, Cognitive-Behavioral (ICD-10-PCS; principal; 2017-07-02)
DX: F10.20 Alcohol dependence, uncomplicated (principal); F16.20 Hallucinogen dependence, uncomplicated; F17.213 Nicotine dependence, cigarettes, with withdrawal; F31.9 Bipolar disorder, unspecified; E66.01 Morbid (severe) obesity due to excess calories; Z68.42 Body mass index [BMI] 45.0-49.9, adult
CPT/HCPCS: 36415; 81003; 81015; 93005; 93010

== ENCOUNTER 2017-08-03 15:53 | Inpatient (IN) | payer OTHER ==
[2017-08-03 18:41] VITALS: BMI 43.7
--- NOTE | 2017-08-03 20:34 | HP ---
CIWA Score - CIWA Score Nausea/Vomitin Muscle Tremors: 3 Anxiety: 2 Agitation: 2 Paroxysmal Sweats: 3 Orientation: 1-Uncertain about Date Tacttile Disturbances: 0-None Auditory Disturbances: 0-None Visual Disturbances: 2-Mild Sensitivity Headache: 0-None Present CIWA-Ar Total Score: 15 Admission ROS BHS - HPI Chief Complaint: WITHDRAWAL SYMPTOMS Allergies/Adverse Reactions: Allergies Allergy/AdvReac Type Severity Reaction Status Date / Time No Known Allergies Allergy Verified 08/03/17 20:47 History of Present Illness: 32 Y.O. MAN WITH A HISTORY OF ALCOHOL AND PCP DEPENDENCE IS HERE FOR DETOX. HE WAS LAST HERE FOR DETOX IN 06/19/17. HIS LONGEST PERIOD OF SOBRIETY HAS BEEN 6 MONTHS. Exam Limitations: No Limitations - Ebola screening Have you traveled outside of the country in the last 21 days: No Have you had contact with anyone from an Ebola affected area: No Have you been sick,other than usual withdrawal symptoms: No - Review of Systems Constitutional: No Symptoms Reported EENT: reports: No Symptoms Reported Respiratory: reports: No Symptoms reported Cardiac: reports: No Symptoms Reported GI: reports: No Symptoms Reported : reports: No Symptoms Reported Musculoskeletal: reports: No Symptoms Reported Integumentary: reports: No Symptoms Reported Neuro: reports: No Symptoms reported Endocrine: reports: No Symptoms Reported Hematology: reports: No Symptoms Reported Psychiatric: reports: Depressed Other Systems: Reviewed and Negative Patient History - Patient Medical History Hx Anemia: No Hx Asthma: No Hx Chronic Obstructive Pulmonary Disease (COPD): No Hx Cancer: No Hx Cardiac Disorders: No Hx Congestive Heart Failure: No Hx Hypertension: No Hx Hypercholesterolemia: No Hx Pacemaker: No HX Cerebrovascular Accident: No Hx Seizures: No Hx Dementia: No Hx Diabetes: No Hx Gastrointestinal Disorders: No Hx Liver Disease: No Hx Genitourinary Disorders: No Hx Sexually Transmitted Disorders: No Hx Renal Disease (ESRD): No Hx Thyroid Disease: No Hx Human Immunodeficiency Virus (HIV): No (last 2014 negative) Hx Hepatitis C: No Hx Depression: Yes Hx Suicide Attempt: No Hx Bipolar Disorder: Yes Hx Schizophrenia: Yes - Patient Surgical History Past Surgical History: No Hx Neurologic Surgery: No Hx Cataract Extraction: No Hx Cardiac Surgery: No Hx Lung Surgery: No Hx Breast Surgery: No Hx Breast Biopsy: No Hx Abdominal Surgery: No Hx Appendectomy: No Hx Cholecystectomy: No Hx Genitourinary Surgery: No Hx Section: No Hx Orthopedic Surgery: No Anesthesia Reaction: No - PPD History Previous Implant?: Yes Documented Results: Negative w/proof Date: 06/17/17 Results: 0 mm PPD to be Administered?: No - Reproductive History Patient is a Female of Child Bearing Age (11 -55 yrs old): No - Smoking Cessation Smoking history: Current every day smoker Have you smoked in the past 12 months: Yes Aproximately how many cigarettes per day: 6 Cigars Per Day: 0 Hx Chewing Tobacco Use: No Initiated information on smoking cessation: Yes 'Breaking Loose' booklet given: 08/03/17 - Substance & Tx. History Hx Alcohol Use: Yes Hx Substance Use: Yes (PCP) Substance Use Type: Alcohol Hx Substance Use Treatment: Yes (DETOX: 06/2017; REHAB: 07/2017) - Substances Abused Alcohol Route: Oral Frequency: Daily Amount used: 6 24OZ OF BEERS; 1 PINT OF LIQUOR Age of first use: 19 Date of Last Use: 08/03/17 PCP Route: Smoking Frequency: 1-2 times per week Amount used: $10 Age of first use: 21 Date of Last Use: 07/31/17 Family Disease History - Family Disease History Family History: Denies Admission Physical Exam S - Vital Signs Vital Signs: Vital Signs - 24 hr 08/03/17 18:37 Temperature 95.8 F L Pulse Rate 58 L Respiratory 20 Rate Blood Pressure 122/77 - Physical General Appearance: Yes: Disheveled, Obese, Anxious HEENTM: Yes: Hearing grossly Normal, Normocephalic, Normal Voice Respiratory: Yes: Chest Non-Tender, Lungs Clear, Normal Breath Sounds, No Respiratory Distress, No Accessory Muscle Use Breast: Yes: Breast Exam Deferred Cardiology: Yes: Regular Rhythm, Bradycardia Abdominal: Yes: Soft Genitourinary: Yes: Other (NO COMPLAINTS REPORTED) Back: Yes: Normal Inspection Extremities: Yes: Normal Capillary Refill, Normal Inspection, Normal Range of Motion, Non-Tender Neurological: Yes: Alert, Motor Strength 5/5, Normal Mood/Affect, Normal Response Integumentary: Yes: Normal Color, Dry, Warm Lymphatic: Yes: Within Normal Limits - Diagnostic (1) Alcohol dependence Current Visit: Yes Status: Chronic (2) Alcohol dependence with uncomplicated withdrawal Current Visit: Yes Status: Chronic (3) Nicotine dependence Current Visit: Yes Status: Chronic Qualifiers: Nicotine product type: cigarettes Substance use status: in withdrawal Qualified Code(s): F17.213 - Nicotine dependence, cigarettes, with withdrawal (4) Obesities, morbid Current Visit: Yes Status: Chronic (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
[2017-08-03] MEDS ORDERED: LOPERAMIDE HCL 2 MG CAPSULE PO PRN (20:58)
[2017-08-03] MEDS ORDERED: P-EPHED 60MG/TRIPROLIDI 2.5MG TABLET PO PRN (20:58)
[2017-08-03] MEDS ORDERED: NICOTINE POLACRILEX 2 MG GUM BC PRN (20:58)
[2017-08-03] MEDS ORDERED: IBUPROFEN 400 MG TABLET (FP) PO PRN (20:58)
[2017-08-03] MEDS ORDERED: MAG HYDROX/AL HYDROX/SIMETH 30 ML UNIT-DOSE CUP PO PRN (20:58)
[2017-08-03] MEDS ORDERED: MAGNESIUM CITRATE 300 ML BOTTLE PO PRN (20:58)
[2017-08-03] MEDS ORDERED: MAGNESIUM HYDROX 2400MG/30ML ORAL SUSPENSION 30 ML CUP PO PRN (20:58)
[2017-08-03] MEDS ORDERED: diphenhydrAMINE HCL 50 MG CAPSULE PO PRN (20:58)
[2017-08-03] MEDS ORDERED: chlordiazePOXIDE HCL 25 MG CAPSULE PO ONE (20:58)
[2017-08-03] MEDS ORDERED: hydrOXYzine PAMOATE 50 MG CAPSULE (FP) PO PRN (20:58)
[2017-08-03] MEDS ORDERED: chlordiazePOXIDE HCL 25 MG CAPSULE PO PRN (20:58)
[2017-08-03] MEDS ORDERED: ACETAMINOPHEN 325 MG TABLET (FP) PO PRN (20:58)
[2017-08-03] MEDS: THIAMINE HCL 100 MG TABLET (FP) PO SCH (22:35)
[2017-08-03] MEDS: chlordiazePOXIDE HCL 25 MG CAPSULE PO SCH (22:35)
[2017-08-04] MEDS: chlordiazePOXIDE HCL 25 MG CAPSULE PO SCH ×4 (05:55→22:30)
[2017-08-04 10:13] LABS: URINE APPEARANCE SLCLOUDY; URINE BILIRUBIN NEGATIVE (NEGATIVE); URINE BLOOD NEGATIVE (NEGATIVE); URINE COLOR YELLOW; URINE GLUCOSE (UA) NEGATIVE (NEGATIVE); URINE KETONE NEGATIVE (NEGATIVE); URINE LEUK ESTERASE NEGATIVE (NEGATIVE); URINE NITRITE NEGATIVE (NEGATIVE); URINE PROTEIN NEGATIVE (NEGATIVE); URINE UROBILINOGEN NEGATIVE mg/dL (0.2-1.0)
[2017-08-04] MEDS: PRENATAL VITAMINS W/ FOLIC ACID TABLET (FP) PO SCH (10:24)
[2017-08-04] MEDS: NICOTINE 14 MG/24 HOURS TOPICAL PATCH TD SCH (10:25)
--- NOTE | 2017-08-04 11:57 | CONSULT ---
[facility] Psychiatric Consult - Data Date of interview: 08/04/17 Admission source: [facility] Identifying data: Readmission to [facility] for this 32 y/o AA male seeking detox treatment on for alcohol and phencyclidine dependence.Patient is single without children,homeless,unemployed and supported on welfare. Substance Abuse History: Confirmed by patient in this session. Smoking Cessation. Smoking history: Current every day smoker. Have you smoked in the past 12 months: Yes. Aproximately how many cigarettes per day: 6. Cigars Per Day: 0. Hx Chewing Tobacco Use: No. Initiated information on smoking cessation : Yes. 'Breaking Loose' booklet given: 08/03/17. - Substance & Tx. History. Hx Alcohol Use: Yes. Hx Substance Use: Yes (PCP). Substance Use Type: Alcohol. Hx Substance Use Treatment: Yes (DETOX: 06/2017; REHAB: 07/2017). - Substances Abused. Alcohol. Route: Oral. Frequency: Daily. Amount used: 6 24OZ OF BEERS; 1 PINT OF LIQUOR. Age of first use: 19. Date of Last Use: . PCP. Route: Smoking. Frequency: 1-2 times per week. Amount used: $ 10. Age of first use: 21. Date of Last Use: 07/31/17 Medical History: Morbid obesity and a history of abdominal herniorraphy (three years ago). Psychiatric History: History of multiple psychiatric hospitalizations ([facility] and [facility]).Diagnosed with Bipolar Disorder.Mr Good is known to the [facility] where he is under the care of Dr Bird.Chronicaly non-adherent to medications + OPD care.Maintained on depakote 500 mg po bid + risperdal 2 mg po hs.Patient denies history of suicide attempts. Physical/Sexual Abuse/Trauma History: No reported history of abuse. Additional Comment: Urine Drug Screen Results: PCP-Phencyclidine, BZO- Benzodiazepines.Noted. Mental Status Exam - Mental Status Exam Alert and Oriented to: Time, Place, Person Cognitive Function: Grossly Intact Patient Appearance: Disheveled (morbidly obese) Mood: Nervous, Anxious Affect: Mood Congruent Patient Behavior: Fatigued, Cooperative Speech Pattern: Clear Voice Loudness: Normal Thought Process: Goal Oriented Thought Disorder: Not Present Hallucinations: Denies Suicidal Ideation: Denies Homicidal Ideation: Denies Insight/Judgement: Poor Sleep: Fair Appetite: Good Muscle strength/Tone: Normal Gait/Station: Normal Psychiatric Findings - Problem List ([place] 1, 2,3) (1) Alcohol dependence with uncomplicated withdrawal Current Visit: Yes Status: Acute (2) Nicotine dependence Current Visit: Yes Status: Acute Qualifiers: Nicotine product type: cigarettes Substance use status: in withdrawal Qualified Code(s): F17.213 - Nicotine dependence, cigarettes, with withdrawal (3) Phencyclidine dependence Current Visit: Yes Status: Acute (4) Bipolar disorder Current Visit: Yes Status: Chronic Comment: Historical diagnosis. (5) Obesities, morbid Current Visit: Yes Status: Chronic - Initial Treatment Plan Initial Treatment Plan: Psychoeducation.Detoxification.Medications : risperdal 2 mg po hs + depakote 500 mg po hs.Side effects/benefits discussed with the patient.made aware of risk of abnormal involuntary movements (akathisia, dyskinesias),NMS,sexual dysfunction,galactorrhea gynecomastia,metabolic syndrome (risperdal) and liver dysfunction,weight gain,sedation (valproate) .Patient consents (verbally) to follow this plan of care.Observation.
--- NOTE | 2017-08-04 13:06 | EKG ---
Test Reason : Blood Pressure : / mmHG Vent. Rate : 068 BPM Atrial Rate : 068 BPM P-R Int : 172 ms QRS Dur : 104 ms QT Int : 414 ms P-R-T Axes : 061 065 000 degrees QTc Int : 440 ms SINUS RHYTHM WITH MARKED SINUS ARRHYTHMIA WHEN COMPARED WITH ECG OF 02-JUL-2017 14:02, NO SIGNIFICANT CHANGE WAS FOUND Confirmed by TIAN NARANJO MD ([id number]) on 08/04/2017 1:05:38 PM Referred By: Confirmed By:TIAN NARANJO MD
--- NOTE | 2017-08-04 14:33 | PN ---
[facility] CIWA - CIWA Score Nausea/Vomitin-No Nausea/No Vomiting Muscle Tremors: 3 Anxiety: 4-Mod. Anxious/Guarded Agitation: 2 Paroxysmal Sweats: 3 Orientation: 0-Oriented Tacttile Disturbances: 3-Moderate Itch/Numb/Burn Auditory Disturbances: 0-None Visual Disturbances: 0-None Headache: 0-None Present CIWA-Ar Total Score: 15 BHS Progress Note (SOAP) Subjective: Sweating, Tremors, Anxious. Objective: PT. A & O X 3, OBSERVED AMBULATING ON UNIT. NO ACUTE DISTRESS. 08/04/17 14:34 Vital Signs Temperature 96.6 F L 08/04/17 10:50 Pulse Rate 97 H 08/04/17 10:50 Respiratory Rate 20 08/04/17 10:50 Blood Pressure 126/80 08/04/17 10:50 O2 Sat by Pulse Oximetry (%) Laboratory Tests 08/04/17 08:00 Urine Color Yellow Urine Appearance Slcloudy Urine pH 5.0 Ur Specific [place] >= 1.030 H Urine Protein Negative Urine Glucose (UA) Negative Urine Ketones Negative Urine Blood Negative Urine Nitrite Negative Urine Bilirubin Negative Urine Urobilinogen Negative labs noted. Assessment: 08/04/17 14:34 WITHDRAWAL SYMPTOMS. Plan: CONTINUE DETOX.
[2017-08-04] MEDS: THIAMINE HCL 100 MG TABLET (FP) PO SCH (22:29)
[2017-08-04] MEDS: risperiDONE 2 MG TABLET PO SCH (22:29)
[2017-08-04] MEDS: BENZTROPINE MESYLATE 1 MG TABLET (FP) PO SCH (22:30)
[2017-08-05] MEDS: chlordiazePOXIDE HCL 25 MG CAPSULE PO SCH ×3 (05:35→17:17)
[2017-08-05 10:11] LABS: BASOPHIL 0.4 % (0-2.0); EOSINOPHIL 3.6 % (0-4.5); MCH 29.5 pg (25.7-33.7); MCHC 32.9 g/dl (32.0-35.9); MEAN CELL VOLUME 89.7 fl (80-96); MEAN PLT VOLUME 8.8 fl (7.5-11.1); NEUTROPHILS 49.9 % (42.8-82.8); PLATELET COUNT 152 K/MM3 (134-434); RDW 15.3 % (11.9-15.9); WHITE BLOOD COUNT 3.9 K/mm3 (4.0-10.0)
[2017-08-05] MEDS: DIVALPROEX SODIUM 500 MG TABLET E.C. PO SCH (10:32)
[2017-08-05] MEDS: NICOTINE 14 MG/24 HOURS TOPICAL PATCH TD SCH (10:33)
[2017-08-05] MEDS: PRENATAL VITAMINS W/ FOLIC ACID TABLET (FP) PO SCH (10:33)
[2017-08-05 10:53] LABS: ALBUMIN 3.4 g/dl (3.4-5.0); ALK PHOS 94 U/L (45-117); ANION GAP 4 (8-16); BILIRUBIN,TOTAL 0.8 mg/dL (0.2-1.0); CALCIUM 8.9 mg/dL (8.5-10.1); CO2 31 mmol/L (21-32); CREATININE 0.9 mg/dL (0.7-1.3); GLUCOSE,RANDOM 84 mg/dL (74-106); SGOT/AST 12 U/L (15-37); SGPT/ALT 19 U/L (12-78); TOT PROT 6.7 g/dl (6.4-8.2)
--- NOTE | 2017-08-05 14:02 | PN ---
S CIWA - CIWA Score Nausea/Vomitin Muscle Tremors: 4-Moderate,w/Arms Extend Anxiety: 4-Mod. Anxious/Guarded Agitation: 4-Moderately Restless Paroxysmal Sweats: 3 Orientation: 0-Oriented Tacttile Disturbances: 1-Very Mild Itch/Numbness Auditory Disturbances: 0-None Visual Disturbances: 0-None Headache: 2-Mild CIWA-Ar Total Score: 21 BHS Progress Note (SOAP) Subjective: Sweating, nausea, chills, anxious, interrupted sleep Objective: 08/05/17 14:01 Last Vital Signs Temp Pulse Resp BP Pulse Ox 95.6 F L 83 20 122/75 08/05/17 09:52 08/05/17 09:52 08/05/17 09:52 08/05/17 09:52 Laboratory Tests 08/04/17 08/05/17 08/05/17 08:00 08:00 08:00 WBC 3.9 L RBC 4.40 Hgb 13.0 Hct 39.5 MCV 89.7 MCH 29.5 MCHC 32.9 RDW 15.3 Plt Count 152 MPV 8.8 Neutrophils % 49.9 Lymphocytes % 39.6 Monocytes % 6.5 Eosinophils % 3.6 Basophils % 0.4 Sodium 140 Potassium 3.9 Chloride 105 Carbon Dioxide 31 Anion Gap 4 L BUN 16 Creatinine 0.9 Creat Clearance w eGFR > 60 Random Glucose 84 Calcium 8.9 Total Bilirubin 0.8 AST 12 L D ALT 19 Alkaline Phosphatase 94 Total Protein 6.7 Albumin 3.4 Urine Color Yellow Urine Appearance Slcloudy Urine pH 5.0 Ur Specific [place] >= 1.030 H Urine Protein Negative Urine Glucose (UA) Negative Urine Ketones Negative Urine Blood Negative Urine Nitrite Negative Urine Bilirubin Negative Urine Urobilinogen Negative RPR Titer 08/05/17 08:00 WBC RBC Hgb Hct MCV MCH MCHC RDW Plt Count MPV Neutrophils % Lymphocytes % Monocytes % Eosinophils % Basophils % Sodium Potassium Chloride Carbon Dioxide Anion Gap BUN Creatinine Creat Clearance w eGFR Random Glucose Calcium Total Bilirubin AST ALT Alkaline Phosphatase Total Protein Albumin Urine Color Urine Appearance Urine pH Ur Specific [place] Urine Protein Urine Glucose (UA) Urine Ketones Urine Blood Urine Nitrite Urine Bilirubin Urine Urobilinogen RPR Titer Nonreactive Labs noted Assessment: 08/05/17 14:02 Withdrawal symptoms Plan: Continue detox
[2017-08-05] MEDS: chlordiazePOXIDE 5 MG CAPSULE PO SCH (22:06)
[2017-08-05] MEDS: BENZTROPINE MESYLATE 1 MG TABLET (FP) PO SCH (22:06)
[2017-08-05] MEDS: THIAMINE HCL 100 MG TABLET (FP) PO SCH (22:06)
[2017-08-05] MEDS: risperiDONE 2 MG TABLET PO SCH (22:06)
[2017-08-06] MEDS: chlordiazePOXIDE 5 MG CAPSULE PO SCH ×3 (05:25→17:19)
[2017-08-06] MEDS: guaiFENesin/D-METHORPHAN HB 10 ML UNIT-DOSE CUPS PO PRN ×2 (05:27→22:15)
[2017-08-06] MEDS: PRENATAL VITAMINS W/ FOLIC ACID TABLET (FP) PO SCH (10:05)
[2017-08-06] MEDS: NICOTINE 14 MG/24 HOURS TOPICAL PATCH TD SCH (10:05)
[2017-08-06] MEDS: DIVALPROEX SODIUM 500 MG TABLET E.C. PO SCH (10:05)
--- NOTE | 2017-08-06 10:55 | PN ---
BHS Progress Note (SOAP) Subjective: ANXIETY, SWEATS FATIGUE. WANTS TO GO TO REHAB. Objective: 08/06/17 10:51 Vital Signs Temperature 97.4 F L 08/06/17 08:52 Pulse Rate 81 08/06/17 08:52 Respiratory Rate 18 08/06/17 08:52 Blood Pressure 133/83 08/06/17 08:52 O2 Sat by Pulse Oximetry (%) Laboratory Last Values WBC 3.9 K/mm3 (4.0-10.0) L 08/05/17 08:00 RBC 4.40 M/mm3 (4.00-5.60) 08/05/17 08:00 Hgb 13.0 GM/dL (11.7-16.9) 08/05/17 08:00 Hct 39.5 % (35.4-49) 08/05/17 08:00 MCV 89.7 fl (80-96) 08/05/17 08:00 MCH 29.5 pg (25.7-33.7) 08/05/17 08:00 MCHC 32.9 g/dl (32.0-35.9) 08/05/17 08:00 RDW 15.3 % (11.9-15.9) 08/05/17 08:00 Plt Count 152 K/MM3 (134-434) 08/05/17 08:00 MPV 8.8 fl (7.5-11.1) 08/05/17 08:00 Neutrophils % 49.9 % (42.8-82.8) 08/05/17 08:00 Lymphocytes % 39.6 % (8-40) 08/05/17 08:00 Monocytes % 6.5 % (3.8-10.2) 08/05/17 08:00 Eosinophils % 3.6 % (0-4.5) 08/05/17 08:00 Basophils % 0.4 % (0-2.0) 08/05/17 08:00 Sodium 140 mmol/L (136-145) 08/05/17 08:00 Potassium 3.9 mmol/L (3.5-5.1) 08/05/17 08:00 Chloride 105 mmol/L (98-107) 08/05/17 08:00 Carbon Dioxide 31 mmol/L (21-32) 08/05/17 08:00 Anion Gap 4 (8-16) L 08/05/17 08:00 BUN 16 mg/dL (7-18) 08/05/17 08:00 Creatinine 0.9 mg/dL (0.7-1.3) 08/05/17 08:00 Creat Clearance w eGFR > 60 (>60) 08/05/17 08:00 Random Glucose 84 mg/dL (74-106) 08/05/17 08:00 Calcium 8.9 mg/dL (8.5-10.1) 08/05/17 08:00 Total Bilirubin 0.8 mg/dL (0.2-1.0) 08/05/17 08:00 AST 12 U/L (15-37) L D 08/05/17 08:00 ALT 19 U/L (12-78) 08/05/17 08:00 Alkaline Phosphatase 94 U/L (45-117) 08/05/17 08:00 Total Protein 6.7 g/dl (6.4-8.2) 08/05/17 08:00 Albumin 3.4 g/dl (3.4-5.0) 08/05/17 08:00 Urine Color Yellow 08/04/17 08:00 Urine Appearance Slcloudy 08/04/17 08:00 Urine pH 5.0 (5.0-8.0) 08/04/17 08:00 Ur Specific [place] >= 1.030 (1.005-1.025) H 08/04/17 08:00 Urine Protein Negative (NEGATIVE) 08/04/17 08:00 Urine Glucose (UA) Negative (NEGATIVE) 08/04/17 08:00 Urine Ketones Negative (NEGATIVE) 08/04/17 08:00 Urine Blood Negative (NEGATIVE) 08/04/17 08:00 Urine Nitrite Negative (NEGATIVE) 08/04/17 08:00 Urine Bilirubin Negative (NEGATIVE) 08/04/17 08:00 Urine Urobilinogen Negative mg/dL (0.2-1.0) 08/04/17 08:00 RPR Titer Nonreactive (NONREACTIVE) 08/05/17 08:00 Assessment: 08/06/17 10:51 WITHDRAWAL SX Plan: CONTINUE DETOX
[2017-08-06] MEDS: chlordiazePOXIDE HCL 10 MG CAPSULE PO SCH (22:13)
[2017-08-06] MEDS: BENZTROPINE MESYLATE 1 MG TABLET (FP) PO SCH (22:13)
[2017-08-06] MEDS: THIAMINE HCL 100 MG TABLET (FP) PO SCH (22:13)
[2017-08-06] MEDS: risperiDONE 2 MG TABLET PO SCH (22:13)
[2017-08-06] MEDS: MENTHOL/PHENOL 1 EACH UD MM PRN (22:16)
[2017-08-07] MEDS: guaiFENesin/D-METHORPHAN HB 10 ML UNIT-DOSE CUPS PO PRN ×2 (03:17→10:17)
[2017-08-07] MEDS: MENTHOL/PHENOL 1 EACH UD MM PRN ×2 (03:18→10:18)
[2017-08-07] MEDS: chlordiazePOXIDE HCL 10 MG CAPSULE PO SCH (05:32)
[2017-08-07 09:12] VITALS: BP 136/88; PULSE 74; TEMP 97.4
--- NOTE | 2017-08-07 09:21 | DS ---
[facility] Detox Discharge Summary Admission Date: 08/03/17 Discharge Date: 08/07/17 - History Present History: Alcohol Dependence Additional Comments: PT COMPLETED DETOX. ALERT O X 3. NO ACUTE DISTRESS. PT ENCOURAGED TO FOLLOW UP AT [facility] FOR MEDICAL ROUTINE MANAGEMENT. Pertinent Past History: MORBID OBESITY S/P UMBILICAL HERNIA REPAIR - Physical Exam Results Vital Signs: Vital Signs Temperature 97.4 F L 08/07/17 09:11 Pulse Rate 74 08/07/17 09:11 Respiratory Rate 18 08/07/17 09:11 Blood Pressure 136/88 08/07/17 09:11 O2 Sat by Pulse Oximetry (%) Pertinent Admission Physical Exam Findings: WITHDRAWAL SX - Treatment Hospital Course: Detox Protocol Followed, Detoxed Safely, Responded well, Discharged Condition Good, Rehab Referral Accepted Patient has Accepted a Rehab Referral to: [facility] - Medication Discharge Medications: Ambulatory Orders Benztropine Mesylate [Cogentin -] 1 mg PO BID 06/15/17 Divalproex Sodium [Depakote] 250 mg PO BID 06/15/17 Benztropine Mesylate [Cogentin -] 0.5 mg PO HS #30 tablet 06/18/17 Divalproex [Depakote -] 500 mg PO HS #30 tablet.ec 06/18/17 Risperidone [Risperdal] 2 mg PO HS #30 tablet 06/18/17 Aripiprazole [Abilify -] 15 mg PO HS #30 tablet 07/11/17 Benztropine Mesylate [Cogentin -] 1 mg PO HS #30 tablet 07/11/17 Divalproex [Depakote -] 500 mg PO BID #60 tablet.ec 07/11/17 - Diagnosis (1) Alcohol dependence with uncomplicated withdrawal Current Visit: Yes Status: Acute (2) Nicotine dependence Current Visit: Yes Status: Acute Qualifiers: Nicotine product type: cigarettes Substance use status: in withdrawal Qualified Code(s): F17.213 - Nicotine dependence, cigarettes, with withdrawal; F17.213 - Nicotine dependence, cigarettes, with withdrawal (3) Obesities, morbid Current Visit: Yes Status: Chronic - AMA Did Patient Leave Against Medical Advice: No
[2017-08-07] MEDS: DIVALPROEX SODIUM 500 MG TABLET E.C. PO SCH (10:17)
[2017-08-07] MEDS: PRENATAL VITAMINS W/ FOLIC ACID TABLET (FP) PO SCH (10:17)
[2017-08-07] MEDS: NICOTINE 14 MG/24 HOURS TOPICAL PATCH TD SCH (10:31)
== END 2017-08-07 10:19 | disposition other institution (70) | DRG 775 ==
LOC: YASAS 15:53 → Y3N 20:52
PROVIDERS: ADMIT Internal Medicine; ATTEND Internal Medicine
PROC: HZ2ZZZZ Detoxification Services for Substance Abuse Treatment (ICD-10-PCS; principal; 2017-08-03)
DX: F10.230 Alcohol dependence with withdrawal, uncomplicated (principal); F16.20 Hallucinogen dependence, uncomplicated; F17.213 Nicotine dependence, cigarettes, with withdrawal; F31.9 Bipolar disorder, unspecified; E66.01 Morbid (severe) obesity due to excess calories; Z68.41 Body mass index [BMI] 40.0-44.9, adult
CPT/HCPCS: 36415; 80053; 81003; 85025; 86593; 93005; 93010

== ENCOUNTER 2021-01-28 09:43 | Emergency (ER) | payer OTHER ==
[2021-01-28 10:01] VITALS: PULSE 76; TEMP 98.2; BMI 45.6
[2021-01-28 10:03] VITALS: BP 132/84
[2021-01-28] MEDS ORDERED: ACETAMINOPHEN 325 MG TABLET (FP) PO ONE (10:37)
[2021-01-28] MEDS ORDERED: KETOROLAC TROMETHAMINE 60 MG/2 ML VIAL IM ONE (10:37)
[2021-01-28] MEDS ORDERED: ACETAMINOPHEN 325 MG TABLET (FP) ONE (10:42)
[2021-01-28] MEDS ORDERED: KETOROLAC TROMETHAMINE 60 MG/2 ML VIAL ONE (10:42)
== END 2021-01-28 10:50 | disposition home or self-care (01) ==
LOC: JER 09:43
PROC: 3E0233Z Introduction of Anti-inflammatory into Muscle, Percutaneous Approach (ICD-10-PCS; principal; 2021-01-28)
DX: K08.89 Other specified disorders of teeth and supporting structures (principal); K02.9 Dental caries, unspecified; R51.9 Headache, unspecified; G89.29 Other chronic pain
CPT/HCPCS: 99284-25

== ENCOUNTER 2021-05-27 15:43 | Emergency (ER) | payer OTHER ==
[2021-05-27 15:53] VITALS: BMI 41.8
[2021-05-27 18:22] LABS: BASO % 0.8 % (0-2.0); EOS % 3.3 % (0-4.5); HEMATOCRIT 41.5 % (35.4-49); LYMPH % 47.2 % (8-40); MCH 30.4 pg (25.7-33.7); MCHC 33.6 g/dl (32.0-35.9); MEAN CELL VOLUME 90.5 fl (80-96); MEAN PLT VOLUME 8.4 fl (7.5-11.1); NEUT % 42.7 % (42.8-82.8); PLATELET COUNT 183 10^3/uL (134-434); RBC 4.59 M/mm3 (4.00-5.60); RDW 15.6 % (11.9-15.9); WHITE BLOOD COUNT 3.9 K/mm3 (4.0-10.0)
[2021-05-27 18:38] LABS: CHLORIDE 109 mmol/L (98-107); SODIUM 140 mmol/L (136-145)
[2021-05-27 18:40] LABS: ALBUMIN 3.6 g/dl (3.4-5.0); BLOOD UREA NITROGEN 14.8 mg/dL (7-18); CALCIUM 8.7 mg/dL (8.5-10.1)
[2021-05-27 18:41] LABS: GLUCOSE,RANDOM 78 mg/dL (74-106)
[2021-05-27 18:43] LABS: SGPT/ALT 13 U/L (13-61)
[2021-05-27 18:44] LABS: CREATININE 0.8 mg/dL (0.55-1.3); SGOT/AST 13 U/L (15-37)
[2021-05-27 18:45] LABS: TOT PROT 6.6 g/dl (6.4-8.2)
[2021-05-27 18:46] LABS: ALK PHOS 78 U/L (45-117)
[2021-05-27 18:50] LABS: BILIRUBIN,TOTAL 0.5 mg/dL (0.2-1)
[2021-05-27 18:55] LABS: ANION GAP 6 MMOL/L (8-16); CO2 25 mmol/L (21-32)
[2021-05-27 19:32] VITALS: BP 122/76; PULSE 49; TEMP 98.3
== END 2021-05-27 19:34 | disposition home or self-care (01) ==
LOC: JER 15:43
DX: R00.1 Bradycardia, unspecified (principal)
CPT/HCPCS: 36415; 71045-TC-FY; 80053; 82550; 84443; 84484; 85025; 93005; 93010; 99285-25; C9803; U0003; U0005

== ENCOUNTER 2021-06-14 14:18 | Inpatient (IN) | payer OTHER ==
[2021-06-14 14:43] VITALS: BMI 40.6
[2021-06-14 18:31] LABS: BASO % 0.6 % (0-2.0); EOS % 2.9 % (0-4.5); HEMATOCRIT 42.8 % (35.4-49); HEMOGLOBIN 14.5 GM/dL (11.7-16.9); LYMPH % 35.1 % (8-40); MCH 30.5 pg (25.7-33.7); MCHC 33.8 g/dl (32.0-35.9); MEAN CELL VOLUME 90.1 fl (80-96); MEAN PLT VOLUME 7.7 fl (7.5-11.1); MONO % 5.3 % (3.8-10.2); NEUT % 56.1 % (42.8-82.8); PLATELET COUNT 187 10^3/uL (134-434); RBC 4.75 M/mm3 (4.00-5.60); RDW 15.7 % (11.9-15.9); WHITE BLOOD COUNT 5.4 K/mm3 (4.0-10.0)
[2021-06-14 18:38] LABS: INR 1.03 (0.83-1.09); PROTHROMBIN TIME (PATIENT) 12.5 SEC (9.7-13.0)
[2021-06-14 18:40] LABS: ACTIVATED PTT 32.6 SECONDS (25.2-36.5)
[2021-06-14 18:49] LABS: CHLORIDE 105 mmol/L (98-107); SODIUM 140 mmol/L (136-145)
[2021-06-14 18:52] LABS: ANION GAP 7 MMOL/L (8-16); BLOOD UREA NITROGEN 15.8 mg/dL (7-18); CO2 28 mmol/L (21-32); GLUCOSE,RANDOM 72 mg/dL (74-106); MAGNESIUM 2.1 mg/dL (1.8-2.4)
[2021-06-14 18:55] LABS: SGOT/AST 19 U/L (15-37); SGPT/ALT 17 U/L (13-61)
[2021-06-14 18:56] LABS: BILIRUBIN,TOTAL 0.6 mg/dL (0.2-1); TOT PROT 7.2 g/dl (6.4-8.2)
[2021-06-14 18:57] LABS: ALK PHOS 97 U/L (45-117)
[2021-06-14 18:58] LABS: N-TERMINAL BNP 47.2 pg/ml (5-125)
[2021-06-14] MEDS ORDERED: FOLIC ACID INJECTION - 1 MG, THIAMINE HCL 200 MG, MULTIVIT INJECTION ADULT 10 ML in SOD... IVPB ONE (21:16)
[2021-06-14] MEDS ORDERED: chlordiazePOXIDE HCL 10 MG CAPSULE PO ONE (21:33)
[2021-06-14] MEDS ORDERED: NICOTINE 7 MG/24 HOURS TOPICAL PATCH TD PRN (21:59)
[2021-06-14] MEDS ORDERED: CHLORHEXIDINE GLUCONATE 4% CLEANSER FOR DECOLONIZATION TP SCH (22:00)
[2021-06-14] MEDS ORDERED: MUPIROCIN 2% TOPICAL OINTMENT FOR DECOLONIZATION NS SCH (22:00)
[2021-06-14] MEDS ORDERED: chlordiazePOXIDE HCL 25 MG CAPSULE PO PRN (22:11)
[2021-06-14] MEDS ORDERED: chlordiazePOXIDE HCL 10 MG CAPSULE ONE (22:16)
[2021-06-14] MEDS ORDERED: diazePAM 2 MG TABLET PO PRN (22:44)
[2021-06-15 07:12] LABS: HEMATOCRIT 41.5 % (35.4-49); MCH 30.5 pg (25.7-33.7); MCHC 33.8 g/dl (32.0-35.9); MEAN CELL VOLUME 90.3 fl (80-96); PLATELET COUNT 163 10^3/uL (134-434); RBC 4.59 M/mm3 (4.00-5.60); RDW 15.6 % (11.9-15.9); WHITE BLOOD COUNT 4.8 K/mm3 (4.0-10.0)
[2021-06-15 07:20] LABS: URINE AMPHETAMINES NEGATIVE (NEGATIVE); URINE BARBITURATES NEGATIVE (NEGATIVE)
[2021-06-15 07:21] LABS: COCAINE, UR NEGATIVE (NEGATIVE); OPIATES, URI NEGATIVE (NEGATIVE); URINE BENZODIAZEPINES NEGATIVE (NEGATIVE)
[2021-06-15 07:32] LABS: METHADONE, UR NEGATIVE (NEGATIVE); PHENCYCLIDINE,URINE POSITIVE (NEGATIVE)
[2021-06-15 07:40] LABS: CALCIUM 8.5 mg/dL (8.5-10.1)
[2021-06-15 07:41] LABS: ALBUMIN 3.4 g/dl (3.4-5.0); BLOOD UREA NITROGEN 14.7 mg/dL (7-18)
[2021-06-15 07:44] LABS: CREATININE 0.8 mg/dL (0.55-1.3); PHOSPHOROUS 3.3 mg/dL (2.5-4.9)
[2021-06-15 07:46] LABS: TOT PROT 6.2 g/dl (6.4-8.2)
[2021-06-15 07:48] LABS: BILIRUBIN,TOTAL 0.7 mg/dL (0.2-1)
[2021-06-15 08:12] LABS: EPI CELLS 3 /uL (0-25.1); HYALINE CASTS 1 /uL (0-3.1); URINE APPEARANCE CLEAR; URINE BACTERIA 367 /uL (0-1359); URINE BILIRUBIN NEGATIVE (NEGATIVE); URINE COLOR YELLOW; URINE GLUCOSE (UA) NEGATIVE (NEGATIVE); URINE KETONE TRACE (NEGATIVE); URINE LEUK ESTERASE TRACE (NEGATIVE); URINE NITRITE NEGATIVE (NEGATIVE); URINE PROTEIN NEGATIVE (NEGATIVE); URINE RBC 14 /uL (0-23.9); URINE WBC 14 /uL (0-25.8)
[2021-06-15] MEDS ORDERED: THIAMINE HCL 100 MG TABLET (FP) ONE (11:15)
[2021-06-15] MEDS ORDERED: FOLIC ACID 1 MG TABLET (FP) ONE (11:15)
[2021-06-15] MEDS ORDERED: ENOXAPARIN NA (PORCINE) 40 MG/0.4 ML DISP.SYRIN SQ ONE (11:15)
[2021-06-15] MEDS: THIAMINE HCL 100 MG TABLET (FP) PO SCH ×2 (11:26→22:49)
[2021-06-15] MEDS: ENOXAPARIN NA (PORCINE) 40 MG/0.4 ML DISP.SYRIN SQ SCH ×2 (11:26→22:49)
[2021-06-15] MEDS: FOLIC ACID 1 MG TABLET (FP) PO SCH (11:26)
[2021-06-15] MEDS ORDERED: ALBUTEROL SO4 HFA INHALER IH ONE (12:32)
[2021-06-15] MEDS: ALBUTEROL SO4 HFA INHALER IH SCH ×3 (12:37→22:50)
[2021-06-16] MEDS: ALBUTEROL SO4 HFA INHALER IH SCH ×6 (00:25→21:29)
[2021-06-16 08:20] LABS: CHOLESTEROL 208 mg/dL (50-200); TRIGLYCERIDES 85 mg/dL (0-150)
[2021-06-16 08:21] LABS: LDL CHOLESTEROL (ONLY SJRH) 137 mg/dL (5-100)
[2021-06-16 08:23] LABS: HDL CHOLESTEROL 40 mg/dL (40-60)
[2021-06-16] MEDS: FOLIC ACID 1 MG TABLET (FP) PO SCH (11:03)
[2021-06-16] MEDS: THIAMINE HCL 100 MG TABLET (FP) PO SCH ×2 (11:03→21:29)
[2021-06-16] MEDS: ENOXAPARIN NA (PORCINE) 40 MG/0.4 ML DISP.SYRIN SQ SCH ×2 (11:03→21:30)
[2021-06-16 19:44] LABS: URINE APPEARANCE CLEAR; URINE BILIRUBIN NEGATIVE (NEGATIVE); URINE COLOR YELLOW; URINE GLUCOSE (UA) NEGATIVE (NEGATIVE); URINE KETONE NEGATIVE (NEGATIVE); URINE LEUK ESTERASE NEGATIVE (NEGATIVE); URINE NITRITE NEGATIVE (NEGATIVE); URINE PROTEIN NEGATIVE (NEGATIVE); URINE UROBILINOGEN 0.2 mg/dL (0.2-1.0)
[2021-06-16] MEDS ORDERED: ATORVASTATIN CA 20 MG TABLET (FP) PO SCH (22:00)
[2021-06-17] MEDS: ALBUTEROL SO4 HFA INHALER IH SCH ×5 (00:10→16:51)
[2021-06-17] MEDS ORDERED: PT OWN MED DRAWER 7, Y5N ONE ×2 (10:13→10:47)
[2021-06-17] MEDS: ENOXAPARIN NA (PORCINE) 40 MG/0.4 ML DISP.SYRIN SQ SCH (10:18)
[2021-06-17] MEDS: FOLIC ACID 1 MG TABLET (FP) PO SCH (10:18)
[2021-06-17] MEDS: THIAMINE HCL 100 MG TABLET (FP) PO SCH (10:18)
[2021-06-17 13:55] VITALS: BP 127/86; PULSE 59; TEMP 98.5
== END 2021-06-17 17:30 | disposition home or self-care (01) | DRG 201 ==
LOC: JER 14:18 → JERBED 15:52 → UNDOADMOB 15:52 → OBSVTOIN 21:17 → INTOOBSV 21:17 → JERBED 06-15 12:12 → OBSVTOIN 06-15 17:10 → J4S 06-15 22:19
PROVIDERS: ADMIT Internal Medicine; ATTEND Internal Medicine
DX: R00.1 Bradycardia, unspecified (principal); F20.9 Schizophrenia, unspecified; F10.230 Alcohol dependence with withdrawal, uncomplicated; G47.33 Obstructive sleep apnea (adult) (pediatric); E66.01 Morbid (severe) obesity due to excess calories; F31.9 Bipolar disorder, unspecified; F16.20 Hallucinogen dependence, uncomplicated; Z68.41 Body mass index [BMI] 40.0-44.9, adult
CPT/HCPCS: 36415; 71046-TC-FY; 80053; 80061; 80307; 81003; 82550; 83735; 83880; 84100; 84439; 84443; 84484; 85025; 85027; 85610; 85730; 86780; 87086; 93005; 93010; 93017; 93018; 93306-TC; 99285-25; C9803; G0378; U0003; U0005

== ENCOUNTER 2021-06-27 14:52 | Emergency (ER) | payer OTHER ==
[2021-06-27 15:13] VITALS: BMI 40.6
[2021-06-27] MEDS ORDERED: SODIUM CHLORIDE 0.9% 500 ML INFUS.BAG IV ONE (16:16)
[2021-06-27 16:26] LABS: BASO % 0.7 % (0-2.0); EOS % 2.8 % (0-4.5); HEMATOCRIT 40.8 % (35.4-49); HEMOGLOBIN 13.8 GM/dL (11.7-16.9); LYMPH % 38.9 % (8-40); MCH 30.4 pg (25.7-33.7); MCHC 33.7 g/dl (32.0-35.9); MEAN CELL VOLUME 90.1 fl (80-96); MEAN PLT VOLUME 8.2 fl (7.5-11.1); NEUT % 50.6 % (42.8-82.8); PLATELET COUNT 193 10^3/uL (134-434); RBC 4.53 M/mm3 (4.00-5.60); RDW 15.4 % (11.9-15.9); WHITE BLOOD COUNT 4.6 K/mm3 (4.0-10.0)
[2021-06-27 16:49] LABS: CHLORIDE 109 mmol/L (98-107); SODIUM 142 mmol/L (136-145)
[2021-06-27 16:51] LABS: ANION GAP 5 MMOL/L (8-16); BLOOD UREA NITROGEN 16.6 mg/dL (7-18); CALCIUM 8.9 mg/dL (8.5-10.1); CO2 29 mmol/L (21-32); GLUCOSE,RANDOM 83 mg/dL (74-106)
[2021-06-27 16:52] LABS: ALBUMIN 3.5 g/dl (3.4-5.0)
[2021-06-27 16:54] LABS: SGOT/AST 9 U/L (15-37); SGPT/ALT 21 U/L (13-61)
[2021-06-27 16:55] LABS: CREATININE 1.2 mg/dL (0.55-1.3)
[2021-06-27 16:56] LABS: BILIRUBIN,TOTAL 0.3 mg/dL (0.2-1); TOT PROT 6.5 g/dl (6.4-8.2)
[2021-06-27 16:57] LABS: ALK PHOS 102 U/L (45-117)
[2021-06-27 18:50] VITALS: BP 107/60; PULSE 52; TEMP 98.5
== END 2021-06-27 18:52 | disposition home or self-care (01) ==
LOC: JER 14:52
DX: R00.1 Bradycardia, unspecified (principal)
CPT/HCPCS: 36415; 71045-TC-FY; 80053; 82550; 84484; 85025; 93005; 93010; 99285-25

== ENCOUNTER 2023-08-06 11:46 | Emergency (ER) | payer OTHER ==
[2023-08-06 12:08] VITALS: BP 105/62; PULSE 75; RESP 18; TEMP 98; BMI 40.5
[2023-08-06] MEDS ORDERED: CYCLOBENZAPRINE HCL 10 MG TABLET (FP) PO ONE (12:49)
[2023-08-06] MEDS ORDERED: ACETAMINOPHEN 500 MG TABLET (FP) PO ONE (12:49)
[2023-08-06] MEDS ORDERED: KETOROLAC TROMETHAMINE 30 MG/1 ML VIAL IM ONE (12:49)
[2023-08-06] MEDS ORDERED: LIDOCAINE 5% TOPICAL PATCH TP ONE (12:49)
[2023-08-06] MEDS ORDERED: ACETAMINOPHEN 500 MG TABLET (FP) ONE (12:54)
[2023-08-06] MEDS ORDERED: CYCLOBENZAPRINE HCL 10 MG TABLET (FP) ONE (12:54)
[2023-08-06] MEDS ORDERED: KETOROLAC TROMETHAMINE 30 MG/1 ML VIAL ONE (12:54)
[2023-08-06] MEDS ORDERED: LIDOCAINE 5% TOPICAL PATCH ONE (12:54)
[2023-08-06] MEDS ORDERED: LIDOCAINE PATCH REMOVAL MC ONE (22:00)
== END 2023-08-06 13:56 | disposition home or self-care (01) ==
LOC: JERFT 11:46 → JER 11:46 → JERFT 13:56
PROC: 3E0233Z Introduction of Anti-inflammatory into Muscle, Percutaneous Approach (ICD-10-PCS; principal; 2023-08-06)
DX: M54.50 Low back pain, unspecified (principal); M25.551 Pain in right hip
CPT/HCPCS: 73502-TC-RT-FY; 99284-25